=== PATIENT | male | born 1965 | race African-American/Black ===

== ENCOUNTER 2018-08-09 17:50 | Inpatient (IN) | payer MEDICAID ==
[~2018-08-09] VITALS: Ht 185.4 cm; Wt 108.9 kg
[~2018-08-09 17:50] MED LIST: CLAR10 PO; CYCL10TA7 PO
[2018-08-09] MEDS ORDERED: SODIUM CHLORIDE 0.9% 1,000 ML IV ONE (19:19)
[2018-08-09] MEDS ORDERED: ONDANSETRON HCL 4MG/2ML INJ IV STA (19:19)
[2018-08-09 19:36] LABS: BASOPHILS % 0.5 % (0.0-2.0); EOSINOPHILS % 4.1 % (0.0-5.0); HEMATOCRIT. 43.7 % (42.0-52.0); HEMOGLOBIN. 13.9 g/dL (14.0-18.0); LYMPHOCYTES % 28.3 % (20.0-50.0); MEAN CORPUSCULAR HEMOGLOBIN 23.6 pg (28.0-32.0); MEAN CORPUSCULAR VOLUME 74.3 fL (80.0-94.0); MONOCYTES % 10.5 % (2.0-8.0); NEUTROPHILS % 56.6 % (40.0-76.0); PLATELET 231 x1000/uL (130-400); RED BLOOD CELL COUNT 5.88 mill/uL (4.7-6.1); RED CELL DISTRIBUTION WIDTH 16.9 % (11.6-14.6)
[2018-08-09 19:40] LABS: CHLORIDE 109 mEq/L (98-107)
[2018-08-09 19:43] LABS: PROTHROMBIN TIME 10.5 sec (9.1-11.1)
[2018-08-09 20:55] VITALS: BP 141/75
[2018-08-09 21:00] VITALS: BP 141/75
[2018-08-09] MEDS ORDERED: ATOR20TA PO (22:15)
[2018-08-09] MEDS ORDERED: CLOP75TA16 MT (22:15)
[2018-08-09] MEDS ORDERED: ASPI-1159 MT (22:15)
[2018-08-09] MEDS ORDERED: [UNRECOGNIZED DRUG - CODE] PO (22:15)
[2018-08-09] MEDS ORDERED: IBUP-2030 PO (22:15)
[2018-08-09] MEDS ORDERED: SODIUM CHLORIDE 0.9% 1,000 ML IV SCH (23:23)
[2018-08-09] MEDS ORDERED: DOCUSATE SODIUM 100MG CAPSULE PO PRN (23:30)
[2018-08-09] MEDS ORDERED: ONDANSETRON HCL 4MG/2ML INJ IV PRN (23:30)
[2018-08-09] MEDS ORDERED: CLONIDINE 0.1MG TABLET PO PRN (23:30)
[2018-08-09] MEDS ORDERED: IPRATROPIUM/ALBUTEROL 0.5-3(2.5)MG/3ML NEB INH PRN (23:30)
[2018-08-09] MEDS ORDERED: MAGNESIUM/ALUMINUM HYDROXIDE/SIMETHICONE 30ML UDC PO PRN (23:30)
[2018-08-09] MEDS ORDERED: HYDROCODONE/ACETAMINOPHEN 5/325MG TABLET PO PRN (23:30)
[2018-08-09] MEDS ORDERED: ACETAMINOPHEN 325MG TABLET PO PRN (23:30)
[2018-08-10] VITALS: BP 123/62
[2018-08-10 04:04] VITALS: BP 97/46
[2018-08-10 06:50] LABS: CHLORIDE 114 mEq/L (98-107)
[2018-08-10 06:58] LABS: HDL CHOLESTEROL 21 mg/dL (40-59)
[2018-08-10 06:59] LABS: LDL CHOLESTEROL 42 mg/dL (5-100)
[2018-08-10 07:01] LABS: BASOPHILS % 0.6 % (0.0-2.0); CREATINE KINASE 173 IU/L (39-308); EOSINOPHILS % 3.6 % (0.0-5.0); HEMATOCRIT. 39.9 % (42.0-52.0); HEMOGLOBIN. 12.7 g/dL (14.0-18.0); LYMPHOCYTES % 35.9 % (20.0-50.0); MEAN CORPUSCULAR HEMOGLOBIN 23.6 pg (28.0-32.0); MEAN CORPUSCULAR VOLUME 74.6 fL (80.0-94.0); MEAN PLATELET VOLUME 7.6 fl (7.4-10.4); MONOCYTES % 11.8 % (2.0-8.0); NEUTROPHILS % 48.1 % (40.0-76.0); PLATELET 216 x1000/uL (130-400); RED BLOOD CELL COUNT 5.35 mill/uL (4.7-6.1); RED CELL DISTRIBUTION WIDTH 16.8 % (11.6-14.6)
[2018-08-10 07:04] LABS: CREATINE KINASE MB FRACTION 2.1 ng/mL (0.5-3.6)
[2018-08-10 07:52] LABS: CLARITY URINE CLOUDY (CLEAR); COLOR URINE YELLOW (YELLOW); KETONES URINE NEGATIVE (NEGATIVE); LEUKOCYTE ESTERASE URINE NEGATIVE (NEGATIVE); NITRITE URINE NEGATIVE (NEGATIVE); OCCULT BLOOD URINE NEGATIVE (NEGATIVE); PH URINE 5.5 (4.5-8.0); PROTEIN URINE NEGATIVE (NEGATIVE); UROBILINOGEN URINE 0.2 E.U./dL (0.2-1.0)
[2018-08-10 08:21] VITALS: BP 109/61
[2018-08-10 08:43] LABS: *AMPHETAMINES SCREEN URINE NEGATIVE (NEGATIVE); *BARBITURATES SCREEN URINE NEGATIVE (NEGATIVE); *BENZODIAZEPINES SCREEN URINE NEGATIVE (NEGATIVE); *COCAINE SCREEN URINE NEGATIVE (NEGATIVE)
[2018-08-10 08:44] LABS: CANNABINOID URINE SCREEN PRESUMTIVE POSITIVE (NEGATIVE); METHADONE URINE SCREEN NEGATIVE (NEGATIVE); OPIATES URINE SCREEN NEGATIVE (NEGATIVE); PHENCYCLIDINE URINE SCREEN NEGATIVE (NEGATIVE)
[2018-08-10] MEDS ORDERED: DOCU-138 PO (10:39)
[2018-08-10 11:13] VITALS: BP 123/65
== END 2018-08-10 11:44 | disposition home or self-care (01) | DRG 254 ==
LOC: ER 17:50 → 6WST 20:07 → EDBEDREQ 20:10 → EDBEDREQTM 20:10 → ENRESERV 20:30 → 6WST 21:00
PROVIDERS: ADMIT Internal Medicine; ATTEND Internal Medicine
DX: K64.8 Other hemorrhoids (principal); D50.9 Iron deficiency anemia, unspecified; K52.9 Noninfective gastroenteritis and colitis, unspecified; I25.2 Old myocardial infarction; Z87.09 Personal history of other diseases of the respiratory system; Z95.1 Presence of aortocoronary bypass graft; Z95.5 Presence of coronary angioplasty implant and graft; Z79.02 Long term (current) use of antithrombotics/antiplatelets; Z79.82 Long term (current) use of aspirin; Z79.899 Other long term (current) drug therapy
CPT/HCPCS: 36415; 80048; 80061; 80305; 82550; 82553; 83735; 84443; 84484; 86850; 86900; 93005; 96374; 99285; J2405; J7030

== ENCOUNTER 2019-05-24 09:12 | Emergency (ER) | payer MEDICAID ==
[~2019-05-24] VITALS: Ht 185.4 cm; Wt 113.0 kg
[~2019-05-24 09:12] MED LIST changes: +ASPI-1393 MT; +ATOR20TA PO; +CLOP75TA4 MT; +DOCU-138 PO
[2019-05-24 10:05] LABS: BASOPHILS % 1.1 % (0.0-2.0); EOSINOPHILS % 3.4 % (0.0-5.0); HEMATOCRIT. 43.4 % (42.0-52.0); HEMOGLOBIN. 13.9 g/dL (14.0-18.0); LYMPHOCYTES % 28.7 % (20.0-50.0); MEAN CORPUSCULAR HEMOGLOBIN 24.2 pg (28.0-32.0); MEAN CORPUSCULAR VOLUME 75.2 fL (80.0-94.0); MEAN PLATELET VOLUME 7.4 fl (7.4-10.4); MONOCYTES % 7.1 % (2.0-8.0); NEUTROPHILS % 59.7 % (40.0-76.0); PLATELET 248 x1000/uL (130-400); RED BLOOD CELL COUNT 5.77 mill/uL (4.7-6.1); RED CELL DISTRIBUTION WIDTH 17.6 % (11.6-14.6)
[2019-05-24 10:13] LABS: PROTHROMBIN TIME 10.4 sec (9.6-11.0)
[2019-05-24 10:20] LABS: CHLORIDE 110 mEq/L (98-107)
[2019-05-24] MEDS ORDERED: ACETAMINOPHEN 325MG TABLET PO PRN (11:45)
[2019-05-24] MEDS ORDERED: GUAIFENESIN 200MG/10ML SUGAR FREE UDC PO PRN (11:45)
[2019-05-24] MEDS ORDERED: DOCUSATE SODIUM 100MG CAPSULE PO PRN (11:45)
[2019-05-24] MEDS ORDERED: ONDANSETRON HCL 4MG/2ML INJ IV PRN (11:45)
[2019-05-24] MEDS ORDERED: MAGNESIUM/ALUMINUM HYDROXIDE/SIMETHICONE 30ML UDC PO PRN (11:45)
[2019-05-24] MEDS ORDERED: IPRATROPIUM/ALBUTEROL 0.5-3(2.5)MG/3ML NEB HHN PRN (11:45)
[2019-05-24] MEDS ORDERED: DIPHENHYDRAMINE 50MG/ML VIAL IV PRN (11:45)
[2019-05-24] MEDS ORDERED: CLONIDINE 0.1MG TABLET PO PRN (11:45)
[2019-05-24] MEDS ORDERED: SODIUM CHLORIDE 0.9% 1,000 ML IV SCH (12:11)
[2019-05-24 12:19] LABS: PHOSPHORUS 2.8 mg/dL (2.5-4.9)
[2019-05-24 19:47] VITALS: BP 119/68
== END 2019-05-24 20:15 | disposition left against medical advice (07) ==
LOC: ER 09:12 → EDBEDREQ 11:28 → ER 20:15 → CANRESERV 20:41 → ENRESERV 20:41 → CANBEDREQ 22:05
DX: K92.2 Gastrointestinal hemorrhage, unspecified (principal); G89.29 Other chronic pain; I25.10 Atherosclerotic heart disease of native coronary artery without angina pectoris; I10 Essential (primary) hypertension; I25.2 Old myocardial infarction; M79.673 Pain in unspecified foot; F12.90 Cannabis use, unspecified, uncomplicated; Z87.891 Personal history of nicotine dependence; Z95.1 Presence of aortocoronary bypass graft; Z79.82 Long term (current) use of aspirin
CPT/HCPCS: 36415; 71045; 83735; 84100; 86850; 86900; 93005; 93970; 99284

== ENCOUNTER 2020-06-26 08:43 | Emergency (ER) | payer MEDICAID ==
[~2020-06-26] VITALS: Ht 185.4 cm; Wt 114.0 kg
[~2020-06-26 08:43] MED LIST changes: -ASPI-1393 MT; +ASPI-1497 MT
[2020-06-26] MEDS ORDERED: METO25TA6 PO (08:50)
[2020-06-26] MEDS ORDERED: KETOROLAC 30MG/ML VIAL IV STA (10:03)
[2020-06-26] MEDS ORDERED: ACETAMINOPHEN 325MG TABLET PO ONE (10:15)
[2020-06-26] MEDS ORDERED: LIDOCAINE 5% PATCH TOP SCH (10:15)
[2020-06-26] MEDS ORDERED: SODIUM CHLORIDE 0.9% 1,000 ML IV ONE (10:15)
[2020-06-26 10:39] LABS: BASOPHILS % 1.1 % (0.0-2.0); EOSINOPHILS % 1.3 % (0.0-5.0); HEMATOCRIT. 45.1 % (42.0-52.0); HEMOGLOBIN. 14.4 g/dL (14.0-18.0); LYMPHOCYTES % 13.9 % (20.0-50.0); MEAN CORPUSCULAR HEMOGLOBIN 23.8 pg (28.0-32.0); MEAN CORPUSCULAR VOLUME 74.9 fL (80.0-94.0); MEAN PLATELET VOLUME 7.9 fl (7.4-10.4); MONOCYTES % 5.9 % (2.0-8.0); NEUTROPHILS % 77.8 % (40.0-76.0); PLATELET 244 x1000/uL (130-400); RED BLOOD CELL COUNT 6.02 mill/uL (4.7-6.1); RED CELL DISTRIBUTION WIDTH 16.7 % (11.6-14.6)
[2020-06-26 10:47] LABS: CHLORIDE 109 mEq/L (98-107)
[2020-06-26 10:50] LABS: CLARITY URINE CLEAR (CLEAR); COLOR URINE YELLOW (YELLOW); KETONES URINE NEGATIVE (NEGATIVE); LEUKOCYTE ESTERASE URINE TRACE (NEGATIVE); NITRITE URINE NEGATIVE (NEGATIVE); OCCULT BLOOD URINE 3+ (NEGATIVE); PROTEIN URINE NEGATIVE (NEGATIVE); SPECIFIC GRAVITY URINE 1.014 (1.005-1.030); UROBILINOGEN URINE 0.2 E.U./dL (0.2-1.0)
[2020-06-26] MEDS ORDERED: CEPHALEXIN 250MG CAPSULE PO NR (13:30)
[2020-06-26] MEDS ORDERED: TAMSULOSIN HCL 0.4MG SR CAPSULE PO SCH (13:30)
[2020-06-26 14:00] VITALS: BP 132/84
== END 2020-06-26 14:40 | disposition home or self-care (01) ==
LOC: ER 08:43
DX: N13.2 Hydronephrosis with renal and ureteral calculous obstruction (principal); N17.9 Acute kidney failure, unspecified; R31.9 Hematuria, unspecified; I25.2 Old myocardial infarction; I10 Essential (primary) hypertension; Z98.61 Coronary angioplasty status
CPT/HCPCS: 36415; 74176; 80053; 81003; 85025; 93005; 96361; 96374; 99285; J1885; J7030; Z7610

== ENCOUNTER 2020-08-10 15:05 | Emergency (ER) | payer MEDICAID ==
[~2020-08-10] VITALS: Ht 185.4 cm; Wt 114.0 kg
[~2020-08-10 15:05] MED LIST changes: +METO25TA6 PO
[2020-08-10 16:19] VITALS: BP 144/87
== END 2020-08-10 16:20 | disposition home or self-care (01) ==
LOC: ER 15:05
DX: K52.9 Noninfective gastroenteritis and colitis, unspecified (principal); I25.2 Old myocardial infarction; I49.9 Cardiac arrhythmia, unspecified; Z98.890 Other specified postprocedural states; Z79.899 Other long term (current) drug therapy
CPT/HCPCS: 99282